=== PATIENT | male | born 1980 | race Caucasian/White ===

== ENCOUNTER 2020-12-07 00:39 | Emergency (ER) | payer SELFPAY ==
[~2020-12-07] VITALS: Ht 182.9 cm; Wt 104.5 kg
[2020-12-07] MEDS ORDERED: KETOROLAC TROMETHAMINE 30 MG/ML VIAL IM ONE (03:30)
[2020-12-07 04:00] VITALS: BP 117/68
== END 2020-12-07 05:14 | disposition home or self-care (01) ==
LOC: EMS 00:42
DX: S83.92XA Sprain of unspecified site of left knee, initial encounter (principal); S93.402A Sprain of unspecified ligament of left ankle, initial encounter; W01.0XXA Fall on same level from slipping, tripping and stumbling without subsequent striking against object, initial encounter; Y93.89 Activity, other specified; Y92.89 Other specified places as the place of occurrence of the external cause; Y99.8 Other external cause status
CPT/HCPCS: 96372; 73564-TC; 73610-TC; Z7502